=== PATIENT | female | born 1950 | race Caucasian/White ===

== ENCOUNTER → 2016-06-19 | Outpatient (CLI) | payer MEDICARE, OTHER ==
[2016-06-19 11:14] LABS: ALT 23 U/L (9-52); AST 23 U/L (14-36); Alkaline Phosphatase 95 U/L (38-126); Anion Gap 12 mmol/L; Blood Urea Nitrogen 18 mg/dL (7-17); Calcium 9.6 mg/dL (8.4-10.2); Carbon Dioxide 26 mmol/L (22-30); Chloride 104 mmol/L (98-107); Cholesterol 142 mg/dL (<200); Glucose 134 mg/dL (74-99); HDL Cholesterol 52 mg/dL (40-60); Non-African American GFR(MDRD) >60 (>60 ml/min/1.73 sqM); Potassium 4.8 mmol/L (3.5-5.1); Sodium 142 mmol/L (137-145); Total Bilirubin 1.1 mg/dL (0.2-1.3); Total Protein 7.3 g/dL (6.3-8.2); Triglycerides 174 mg/dL (<150)
== END ==
LOC: LABWHC1 08:54
PROVIDERS: ATTEND Internal Medicine Endocrinology, Diabetes & Metabolism
DX: E11.65 Type 2 diabetes mellitus with hyperglycemia (principal)
CPT/HCPCS: 36415; 80053; 80061; 82043; 84443

== ENCOUNTER → 2016-07-02 | Outpatient (CLI) | payer MEDICARE, OTHER ==
--- NOTE | 2016-07-02 09:31 | MR ---
MRI of the brain with and without contrast HISTORY: Memory loss. TECHNIQUE: T1-weighted sagittal, T2, FLAIR, and diffusion axial, postcontrast T1 axial and coronal vi ews of the brain are submitted. CONTRAST: 20 mL MultiHance FINDINGS: There is no evidence of acute ischemia. The ventricles, basal cisterns, and sulci overlying the co nvexities are consistent with mjkq-ns-cvtaaxoj degenerative change. There is no mass effect or enhan cing mass. Craniocervical junction maintained. Sella turcica has a normal appearance. No evidence of cerebellopo ntine angle mass. Hyperostosis frontalis interna. There are vague 5 mm enhancement in the posterior left occipital lobe likely is artifact. Vague 5 mm enhancement within the right medial temporal lobe also appears to be artifactual or vascular additional sequences. Changes of chronic sinusitis and mastoiditis noted. 5 mm nodular prominence involving the posterior c ommunicating artery and the right. WHITE MATTER: Approximately 5 focal areas of abnormal signal scattered throughout the white matter bilaterally whic h are nonspecific. IMPRESSION: 1. No acute intracranial process. Mild to moderate degenerative change and minimal nonspecific white matter findings most typical remote microvascular ischemia. 2. There is a 5 mm area of nodular enhancement in the region of the right posterior communicating art nga. Tiny aneurysm not excluded consider follow-up MRA [place].
== END | disposition home or self-care (01) ==
LOC: RADMRIMAIN 08:38
PROVIDERS: ATTEND Psychiatry & Neurology Neurology
DX: R90.82 White matter disease, unspecified (principal)
CPT/HCPCS: 70553; A9577

== ENCOUNTER → 2016-09-06 | Outpatient (CLI) | payer MEDICARE, OTHER ==
--- NOTE | 2016-09-06 12:38 | MR ---
EXAMINATION TYPE: MR angio head wo con DATE OF EXAM: 09/06/2016 COMPARISON: MRI 07/02/2016 HISTORY: aneurysm, dizziness TECHNIQUE: Utilizing 3-D etfl-vl-oqncbn intracranial MRA of the [place] was performed. FINDINGS: The vertebrobasilar and carotid systems are patent. There is a 5 mm area of nodular enhancement at t he origin of the right posterior communicating artery compatible with a small aneurysm IMPRESSION: 1. 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 Also suggestion of po ssible fenestration..
== END | disposition home or self-care (01) ==
LOC: RADMRIMAIN 11:39
PROVIDERS: ATTEND Neurological Surgery
DX: I67.1 Cerebral aneurysm, nonruptured (principal)
CPT/HCPCS: 70544

== ENCOUNTER → 2017-04-28 | Outpatient (CLI) | payer MEDICARE, OTHER ==
--- NOTE | 2017-04-28 18:48 | CONS ---
CONSULTATION REASON FOR CONSULTATION: Sleep apnea. CHIEF COMPLAINT: "I don't sleep well. Restless at night. I wake up frequently and have to go to the recliner to get better sleep." This is a very pleasant 66-year-old female patient, morbidly obese, who is coming in due to concerns about obstructive sleep apnea. The patient had complicated multiple abdominal surgeries, and during her last abdominal surgery the patient had impending respiratory failure where she had she had to be placed on BiPAP. During the same hospitalization, the patient was told that she has obstructive sleep apnea, and I think features of obstructive sleep apnea were noted by the medical staff at the time of surgery. She was asked to be further investigated. For that reason, the patient was referred to me. In summary, the patient had a complicated bowel obstruction, for which she underwent surgery and subsequently she had an abdominal wound infection and abdominal wall hernia. Since then she has had multiple abdominal surgeries, at least 3, the last one being done at [facility]. Ultimately the abdominal wound was closed and she does not have any open wounds for now. She is morbidly obese and she carries a BMI of 47.3. She was having difficulties with her breathing postoperatively which probably was a combination of factors related to her obesity and probably some postoperative pulmonary complications occurred at the time of surgery. Sleep apnea was also considered to be a factor. Clinically the patient has loud snoring. She stops breathing, as confirmed by a family member, and she has excessive fatigue and sleepiness. She has been uncomfortable in bed and she tries to get up to sleep in a recliner. She is waking up tired and fatigued during the day. She is having increased fogginess and cloudiness with her thinking and memory and concentration, per family members. She is averaging around 5 to 6 hours of sleep. She turns on the TV in her bedroom. She tries to sleep on her side. Her current [place] Score is 10. Her weight is up at 280 pounds. No sleep paralysis. No hallucinations. No cataplexy. Occasional nightmares. PAST MEDICAL HISTORY: 1. Obesity. 2. Abdominal wall hernia requiring multiple abdominal surgeries. 3. Abdominal wound infection with MRSA. 4. Diabetes mellitus. 5. Hyperlipidemia. 6. Degenerative arthritis. 7. Previous bariatric surgery for morbid obesity. PAST SURGICAL HISTORY: 1. Lap band insertion and subsequent removal. 2. x3. 3. D and C x2. 4. Bilateral knee replacement. 5. Carpal tunnel release bilaterally. 6. Tonsillectomy. 7. Adenoidectomy. 8. Surgery for bowel obstruction and subsequent surgical repair of an abdominal wall hernia. 9. Hysterectomy. SOCIAL HISTORY: Lifetime nonsmoker. No history of alcohol. No history of IV drugs. FAMILY HISTORY: Negative for sleep apnea or any other form of sleep disorder. REVIEW OF SYSTEMS: CONSTITUTIONAL: The patient is obese. She is cooperative. She is not in acute distress at this point. She is having difficulties losing weight. HEENT: Impaired vision. Loud snoring per family. She is a nose breather. No sinus disease. No nasal congestion or postnasal drainage. No neck pain. No head trauma. PULMONARY: No cough or sputum production. She has chronic exertional dyspnea. CARDIOVASCULAR: No angina. No palpitations. GI: Negative for any nausea or vomiting. Abdominal surgery, as mentioned above. is negative for dysuria, frequency, urgency. MUSCULOSKELETAL: Degenerative arthritis with chronic knee and back pain. Skin is negative for any open wounds or ulcerations abdominal wound surgery has been all healed. NEURO: She is awake and alert, although she is having some memory and concentration problems. PSYCH: Negative for anxiety or depression at this point. PHYSICAL EXAMINATION: Her current vitals are BP of 129/68, pulse 72, respirations 18, temperature 97.6, saturation 97% on room air. Weight is 259. Height is 5 feet 2 inches. Neck size 16. [place] is 10. BMI is 47.3. GENERAL APPEARANCE: Obese, calm, comfortable, in no acute distress. Head is atraumatic, normocephalic. Pupils are equal, round, reactive to light. Crowding of posterior pharynx with Mallampati class 4. No lymphadenopathy. PULMONARY: Diminished breath sounds in lung bases bilaterally. HEART: Sounds are regular. Positive S1, S2. No S3, S4. No murmurs ABDOMEN: Scar of previous abdominal surgery over the anterior abdominal wall. No direct tenderness. No rebound tenderness or guarding. : Negative. LOWER EXTREMITIES: Trace edema. There is no cyanosis or clubbing. NEUROLOGIC: Cranial nerves are intact. The patient is moving all 4 extremities without any limitation. Psychiatrically, the patient has appropriate mood and affect. She has appropriate judgment at this point. MEDICATION LIST: 1. Metformin 500 mg p.o. b.i.d. 2. Lasix 20 mg p.o. daily. 3. Potassium 10 mg p.o. daily. 4. Atenolol 50 mg p.o. daily. 5. Enalapril 5 mg p.o. daily. 6. Zocor 20 mg p.o. daily. 7. Aspirin 81 mg p.o. daily. 8. Prozac 20 mg p.o. daily. 9. Pioglitazone 30 mg p.o. daily. 10.Glipizide 10 mg p.o. daily. 11.Iron 325 mg p.o. daily. 12.Magnesium and calcium supplements. IMPRESSION: 1. Sleep disturbance along with snoring, sleep fragmentation, frequent arousals and chronic tiredness and fatigue. Rule out underlying obstructive sleep apnea; this is very likely based on the reported history. 2. Morbid obesity. BMI of 47.3. 3. Chronic hypersomnia with an [place] score of 10. 4. Diabetes. 5. Hypertension. 6. Hyperlipidemia. 7. Abdominal wall hernia with multiple abdominal surgeries. 8. History of methicillin-resistant Staphylococcus aeruginosa wound infection. PLAN: 1. Encourage weight loss. 2. Proceed with a screening polysomnogram. 3. Treat obstructive sleep apnea if needed. 4. We will need a pulmonary evaluation and outpatient pulmonary function testing and chest x-ray will be needed, especially with her complicated postoperative course and postoperative respiratory failure. Will continue to follow. TOMY / KELECHI: [id number] /
== END | disposition home or self-care (01) ==
LOC: SLEEP 15:23
PROVIDERS: ATTEND Internal Medicine Critical Care Medicine
DX: G47.9 Sleep disorder, unspecified (principal); R06.83 Snoring; R53.83 Other fatigue; G47.8 Other sleep disorders; E66.01 Morbid (severe) obesity due to excess calories; G47.10 Hypersomnia, unspecified; E11.9 Type 2 diabetes mellitus without complications; M13.80 Other specified arthritis, unspecified site; I10 Essential (primary) hypertension; E78.5 Hyperlipidemia, unspecified; K43.9 Ventral hernia without obstruction or gangrene; Z86.14 Personal history of Methicillin resistant Staphylococcus aureus infection; Z98.890 Other specified postprocedural states; Z79.84 Long term (current) use of oral hypoglycemic drugs; Z68.42 Body mass index [BMI] 45.0-49.9, adult; Z79.899 Other long term (current) drug therapy; Z79.82 Long term (current) use of aspirin
CPT/HCPCS: 99211

== ENCOUNTER → 2017-05-26 | Outpatient (CLI) | payer MEDICARE, OTHER ==
--- NOTE | 2017-05-26 16:11 | MR ---
EXAMINATION TYPE: MR brain wo/w con DATE OF EXAM: 05/26/2017 COMPARISON: Prior MRI July 02, 2016. Prior CT brain February 04, 2016. HISTORY: Follow up from previous MRI 07/02/2016, Gadavist 10ml TECHNIQUE: Multiplanar, multisequence images of the brain and brainstem is performed without and with IV contras t, utilizing 10 mL intravenous Gadavist . FINDINGS: Diffusion weighted images demonstrate no evidence of a recent infarct or other diffusion ab normality. There is no worrisome extra-axial fluid collection. Ventricular and sulcal size are stabl e. There are a few scattered foci of T2 hyperintensity seen throughout the white matter bilaterally. Less than 5 focal lesions are present. Hyperostosis frontalis is redemonstrated. Midline structures demonstrate normal morphology. The craniocervical junction appears within normal limits. Post contrast images demonstrate no areas of abnormal enhancement with particular attention to left occipital and right medial temporal lobes at area of concern on prior MRI. The dural venous s inuses appear patent. The visualized sinuses are clear and the globes are intact. Mild increased flui d signal right mastoid air cells is redemonstrated and likely reflects retained secretions. IMPRESSION: Stable mild diffuse cerebral atrophy and chronic small vessel ischemic change. No suspici ous enhancement on current study. Areas of concern likely artifactual based on unremarkable follow-up .
== END | disposition home or self-care (01) ==
LOC: RADMRIMAIN 14:49
PROVIDERS: ATTEND Psychiatry & Neurology Neurology
DX: I67.82 Cerebral ischemia (principal); G31.9 Degenerative disease of nervous system, unspecified
CPT/HCPCS: 70553; A9581

== ENCOUNTER → 2017-05-27 | Outpatient (CLI) | payer MEDICARE, OTHER ==
[2017-05-27 09:55] LABS: Anisocytosis Slight; HCT 32.4 % (34.0-46.0); HGB 9.6 gm/dL (11.4-16.0); Hypochromasia Moderate; MCH 23.5 pg (25.0-35.0); MCHC 29.8 g/dL (31.0-37.0); Mean Platelet Volume 7.1; Microcytosis Slight; Platelet Count 282 k/uL (150-450); RDW 16.8 % (11.5-15.5); WBC 7.8 k/uL (3.8-10.6)
[2017-05-27 11:09] LABS: Calcium 9.6 mg/dL (8.4-10.2); Potassium 4.2 mmol/L (3.5-5.1); Total Bilirubin 0.9 mg/dL (0.2-1.3); Total Protein 7.4 g/dL (6.3-8.2)
[2017-05-27 19:49] LABS: Hemoglobin A1C 5.1 % (4.0-6.0)
== END | disposition home or self-care (01) ==
LOC: LABWHC1 08:29
PROVIDERS: ATTEND Internal Medicine Endocrinology, Diabetes & Metabolism
DX: E11.65 Type 2 diabetes mellitus with hyperglycemia (principal)
CPT/HCPCS: 36415; 80053; 80061; 82043; 82570; 83036; 85027

== ENCOUNTER → 2017-07-14 | Outpatient (CLI) | payer MEDICARE, OTHER ==
--- NOTE | 2017-07-14 14:26 | PN ---
PROGRESS NOTE A 66-year-old female patient coming in for a compliance evaluation regarding obstructive sleep apnea. The patient was found to have mild obstructive sleep apnea and an AHI of 8.7, worse during REM. AHI during REM was 23.2. Based on that, she was given a CPAP machine and currently she is on an auto CPAP with a minimum pressure of 10, a maximum pressure of 16. She is using a Branham FX nose pillow. She is looking well. She is responding to her treatment. She reports marked improvement in sleep quality in general while being on CPAP treatment. She is waking up much more alert and refreshed during the day. On the compliance data, the patient has been using her CPAP machine more than 4 hours and / days. Average CPAP is around 6.7 hours per night and her average CPAP pressure is 11.9 with an AHI while on treatment is down to 2.9. She is quite content and happy and she denies having any complaints. Her temperatures is at 72 degrees Fahrenheit and level is at 5. She is trying to lose weight. She is morbidly obese. PERTINENT PHYSICAL FINDINGS: The BP is 113/57, pulse 72, respirations 16, weight is 245. Temperature 98.0, saturation 96% on room air. GENERAL APPEARANCE: Calm, comfortable, in no acute distress. HEENT: Head is atraumatic, normocephalic. Neck short, supple. There is crowding of posterior pharynx. There is no goiter or neck masses. LUNGS: Clear to auscultation. HEART: Sounds regular rate and rhythm. Normal S1, S2. No S3, S4. No murmurs. ABDOMEN: Soft, nontender. No organomegaly. EXTREMITIES: Trace edema. There is no cyanosis or clubbing. REVIEW OF SYSTEMS: A 12-point review of system was done. Her hypersomnia is improved, she has had multiple abdominal surgeries and she is still being followed up by Dr. Ferguson at [facility]. She has abdominal wall hernia. Otherwise, no other new complaints for now. IMPRESSION: 1. Symptomatic obstructive sleep apnea with an apnea-hypopnea index of 8.7, worse during REM. The patient is undergoing successful CPAP therapy with an APAP minimum pressure of 10, maximum pressure of 16. 2. Morbid obesity with a body mass index of 47. 3. Hypersomnia, improved, previous [place] score was 10, currently she is down to 6. 4. Abdominal wall hernia. Surgically treated. 5. Hypertension. 6. Hyperlipidemia. 7. Diabetes mellitus. PLAN: 1. Continue CPAP at same level of pressure. 2. Continue using the Branham FX nose pillows. 3. Encourage weight loss. 4. Treatment has been successful. The patient will see me back in a year's time in followup, earlier if needed. MMODL / IJN: [id number] /
== END | disposition home or self-care (01) ==
LOC: SLEEP 13:05
PROVIDERS: ATTEND Internal Medicine Critical Care Medicine
DX: G47.33 Obstructive sleep apnea (adult) (pediatric) (principal); E66.01 Morbid (severe) obesity due to excess calories; G47.10 Hypersomnia, unspecified; K43.9 Ventral hernia without obstruction or gangrene; I10 Essential (primary) hypertension; E78.5 Hyperlipidemia, unspecified; E11.9 Type 2 diabetes mellitus without complications; Z98.890 Other specified postprocedural states; Z68.42 Body mass index [BMI] 45.0-49.9, adult; Z99.89 Dependence on other enabling machines and devices

== ENCOUNTER → 2017-12-15 | Outpatient (CLI) | payer MEDICARE, OTHER ==
--- NOTE | 2017-12-15 14:51 | BD ---
EXAMINATION TYPE: Axial Bone Density DATE OF EXAM: 12/15/2017 COMPARISON: NONE CLINICAL HISTORY: 67 YR OLD FEMALE....ICD-10 CODE: Z13.820 SCREENING Height: 62 Weight: 252 FRAX RISK QUESTIONS: NOTHING TO NOTE HERE RISK FACTORS HISTORY OF: Diet low in dairy products/other sources of calcium: NO Postmenopausal woman: 47 YRS OLD TOTAL HYST. MEDICATIONS: Additional Medications: BP MEDS, ORAL DIABETIC MEDS, STATINS FOR CHOLESTEROL, VIT D AND CALCIUM Additional History: IRREG. HEART BEAT, DIABETIC, BILAT TKR's EXAM MEASUREMENTS: Bone mineral densitometry was performed using the [employer] System. Bone mineral density as measured about the Lumbar spine is: ----- L1-L4(G/cm2): 1.580 T Score Values are as follows: ----- L1: 5.5 ----- L2: 3.3 ----- L3: 2.4 ----- L4: 2.4 ----- L1-L4: 3.3 Bone mineral density FIRST BONE DENSITY TEST.....BASELINE STUDY Bone mineral density about the R hip (g/cm2): 1.018 Bone mineral density about the L hip (g/cm2): 1.029 T Score values are as follows: -----R Neck: -0.2 -----L Neck: 0.0 -----R Total: 0.1 -----L Total: 0.2 Bone mineral density BASELINE STUDY FRAX%s: THERE IS A 6.1% CHANCE OF A MAJOR OSTEOPOROTIC FX AND A 0.3% FOR A HIP FX.....PROBABILITY OF FX IN 10 YRS TIME IMPRESSION: Normal (Values between +1 and -1 indicate normal bone mass). Consider repeating this study in 5 year s or sooner if there is some new clinical indication. NOTE: T-SCORE=SD OF THE YOUNG ADULT MEAN.
--- NOTE | 2017-12-17 10:22 | MM ---
Reason for exam: screening (asymptomatic). Last mammogram was performed 2 years and 10 months ago. History: Patient is postmenopausal. Benign excisional biopsy of the left breast, 2002. Physical Findings: A clinical breast exam by your physician is recommended on an annual basis and results should be correlated with mammographic findings. MG 3D Screening Mammo W/Cad Bilateral CC and MLO view(s) were taken. Prior study comparison: February 14, 2015, mammogram, performed at [facility]. February 07, 2014, mammogram, performed at [facility]. There are scattered fibroglandular densities. Stable tiny oil cyst calcifications. No significant changes when compared with prior studies. ASSESSMENT: Negative, BI-RAD 1 RECOMMENDATION: Routine screening mammogram of both breasts in 1 year.
== END | disposition home or self-care (01) ==
LOC: RADBDWWP 13:40
PROVIDERS: ATTEND Family Medicine
DX: Z12.31 Encounter for screening mammogram for malignant neoplasm of breast (principal); Z13.820 Encounter for screening for osteoporosis
CPT/HCPCS: 77063; 77067; 77080

== ENCOUNTER → 2018-01-06 | Outpatient (CLI) | payer MEDICARE, OTHER ==
--- NOTE | 2018-01-06 14:06 | CT ---
EXAMINATION TYPE: CT abdomen pelvis w con DATE OF EXAM: 01/06/2018 COMPARISON: None HISTORY: 67-year-old female with abdominal wall mass. Lump near hernia repair. TECHNIQUE: Contiguous axial scanning of the abdomen and pelvis following administration of 80 ml Isov ue 300 IV contrast. Delayed images through the kidneys and coronal/sagittal reconstructions performe d. CT DLP: 1753 mGycm Automated exposure control for dose reduction was used. FINDINGS: Heart is upper limits of normal in size without pericardial effusion. Aortic valvular calcifications are present. Strandy atelectasis in the lower lungs. No pleural effusion. Postsurgical changes at the GE junction. No focal liver lesion or biliary ductal dilatation. Portal venous system is patent. Gallbladder, adrenal glands, left kidney, spleen, and pancreas appear within normal limits. The right kidney is malrotated with atrophic upper pole and multiple calcifications measuring up to 1 cm within this atrophic portion of the kidney. No dilated small bowel, free fluid, or free air. Oral contrast has reached the rectum. No significant stool burden. No pericolonic inflammatory change . A few prominent lymph nodes along the right common iliac chain measure up to 1 cm. Likely reactive/po st inflammatory. Otherwise, no mesenteric or retroperitoneal lymphadenopathy. Bladder partially distended. Uterus surgically absent. Pelvic phleboliths. Both ovaries are visualize d. No abnormal fluid collection in the pelvis. Some prominent lymph nodes along the left external juliette ac chain measure up to 1.1 cm but show large fatty hilum. Likely reactive/post inflammatory. There is extensive fat stranding along the anterior abdominal wall status post hernia repair. There i s soft tissue thickening and suspected fluid collection measuring 6.9 cm wide by 4.9 cm craniocaudal by 3.1 cm AP at this location located within the subcutaneous adipose layer. Bones: DISH within the lower thoracic spine. Facet arthropathy mid to lower lumbar spine. Degenerativ e disc disease particularly at L4-L5. IMPRESSION: 1. CORRELATE TO TIME COURSE SINCE PATIENT'S SURGERY. THERE IS EXTENSIVE INFLAMMATORY CHANGE (POSTS URGICAL VERSUS CELLULITIS) VERSUS SCAR TISSUE ALONG THE ANTERIOR ABDOMINAL WALL WITHIN THE SUBCUTANEO US ADIPOSE LAYER AND SUGGESTION OF AN ASSOCIATED 6.9 CM X 3.1 CM FLUID COLLECTION THAT COULD BE A POS TOPERATIVE SEROMA. AN ABSCESS IS CONSIDERED LESS LIKELY THERE IS NO WELL-FORMED PERIPHERALLY ENHAN CING RIM. 2. MALROTATED RIGHT KIDNEY WITH ATROPHIC UPPER POLE AND NONOBSTRUCTIVE CALCULI MEASURING UP TO 1 CM.
== END | disposition home or self-care (01) ==
LOC: RADCTMAIN 11:23
PROVIDERS: ATTEND Surgery
DX: N20.0 Calculus of kidney (principal); N26.1 Atrophy of kidney (terminal)
CPT/HCPCS: 82565; 84520; 74177; 36415; Q9967

== ENCOUNTER → 2018-08-03 | Outpatient (CLI) | payer MEDICARE, OTHER ==
--- NOTE | 2018-08-03 14:55 | SFUN ---
SLEEP CENTER FOLLOW UP NOTE Ashley is a 67-year-old female patient coming in for an annual check regarding obstructive sleep apnea. The patient has mild disease with an AHI of 8.7, and the patient is currently maintained on a APAP, minimum pressure of 10, maximum pressure of 26. On today's evaluation, the patient is using the Branham FX mask and she is looking for alternatives. She is also interesting in lowering the humidity knowing that she is having excessive nasal congestion and drainage while being on the treatment. Her weight has been stable and her condition has been essentially stable without any new onset medical consult or comorbidities over the past 1 year. I checked her compliance data the patient has been averaging around more than 5 hours of CPAP use per night. Her CPAP use for more than 4 hours is 21/30. Her average pressure utilized is 13.2 cm of water with a leak factor of 28 L/minute and her AHI while on treatment is down to 2.3. As such, this is a successful treatment. In terms of her weight, the patient has gained significant amount of weight since last year. She used to weight 245 pounds and currently she is up to 274 with a BMI of 50.1. REVIEW OF SYSTEMS: A 14 -point review of system was done. Positive findings are mentioned above in history of present illness is positive for weight gain. No hypersomnia or sleepiness. She has excessive nasal congestion and drainage. No sinus infections. No hypersomnia or sleepiness during the day. No angina. No palpitations. No shortness of breath. BP is 119/59, pulse 63, respirations 16, temperature 97.2, saturation 98% on room air. BMI is 50.1, [place] score is 7, weight is 274. Height is 5, 2. GENERAL APPEARANCE: Obese, calm comfortable, head is atraumatic, normocephalic. NECK: Supple. There is no JVD. No goiter or neck masses. Mallampati class IV. LUNGS: Clear to auscultation. HEART: Sounds are regular rate and rhythm. Normal S1, S2. No S3. No murmurs. ABDOMEN: Soft, nontender. No organomegaly. EXTREMITIES: No edema. No cyanosis or clubbing. NEUROLOGIC: Alert and oriented x3. No focal neurological deficits. PSYCHIATRIC: Negative for anxiety or depression. SKIN: Negative for any wounds or ulceration. IMPRESSION: 1. Obstructive sleep apnea, apnea-hypopnea index of 8.7, worse during REM sleep. The patient is on APAP, minimum of 10, maximum pressure of 16. 2. Obesity with interval weight gain. Current body mass index is up to 50.1. 3. Abdominal wall hernia. 4. Hypersomnia, improved. 5. Hypertension. 6. Hyperlipidemia. 7. Diabetes mellitus. PLAN: 1. Continue APAP therapy the same level of pressure, treatment is successful. 2. Lower the humidity down to 2. 3. Offer the patient a small size Dream Wear under the nose mask. 4. Encourage weight loss. 5. See me back in a year's time in followup. MMODL / IJN: [id number] /
== END | disposition home or self-care (01) ==
LOC: SLEEP 13:21
PROVIDERS: ATTEND Internal Medicine Critical Care Medicine
DX: G47.33 Obstructive sleep apnea (adult) (pediatric) (principal); E66.9 Obesity, unspecified; K43.9 Ventral hernia without obstruction or gangrene; I10 Essential (primary) hypertension; E78.5 Hyperlipidemia, unspecified; E11.9 Type 2 diabetes mellitus without complications; Z99.89 Dependence on other enabling machines and devices; Z68.43 Body mass index [BMI] 50.0-59.9, adult

== ENCOUNTER → 2019-06-10 | Outpatient (CLI) | payer MEDICARE, OTHER ==
--- NOTE | 2019-06-10 12:04 | US ---
EXAMINATION TYPE: US carotid duplex BILAT DATE OF EXAM: 06/10/2019 COMPARISON: NONE CLINICAL HISTORY: I63.9 Cerebral infarction, unspecified. Cerebral infarction. EXAM MEASUREMENTS: RIGHT: Peak Systolic Velocity (PSV) cm/sec ----- Right CCA: 67.7 ----- Right ICA: 95.3 ----- Right ECA: 118.6 ICA/CCA ratio: 1.4 RIGHT: End Diastole cm/sec ----- Right CCA: 16.9 ----- Right ICA: 21.2 ----- Right ECA: 15.4 LEFT: Peak Systolic Velocity (PSV) cm/sec ----- Left CCA: 57.7 ----- Left ICA: 76.2 ----- Left ECA: 80.1 ICA/CCA ratio: 1.3 LEFT: End Diastole cm/sec ----- Left CCA: 15.3 ----- Left ICA: 18.0 ----- Left ECA: 10.1 VERTEBRALS (direction of flow): Right Vertebral: Antegrade Left Vertebral: Antegrade Rhythm: Normal IMPRESSION: Mild degree of grayscale atheromatous plaquing with no sonographically evident hemodynam ically significant stenosis within either visualized carotid arterial system. Criteria for Assigning % of Stenosis / Diameter reduction (Estimation based on the indirect measurements of the internal carotid artery velocities (ICA PSV). 1. Normal (no stenosis)=ICA PSV < 125 cm/s: ratio < 2.0: ICA EDV<40 cm/s. 2. Less than 50% stenosis=ICA PSV < 125 cm/s: ratio < 2.0: ICA EDV<40 cm/s. 3. 50 to 69% stenosis=ICA PSV of 125 to 230 cm/s: ration 2.0 ? 4.0: ICA EDV 40-100 cm/s. 4. Greater than 70% stenosis to near occlusion= ICA PSV > 230 cm/s: ratio > 4.0: ICA EDV > 100 cm/s. 5. Near occlusion= ICA PSV velocities may be low or undetectable: variable ratio and ICA EDV. 6. Total occlusion=unable to detect flow.
== END | disposition home or self-care (01) ==
LOC: RADUSWWP 11:10
PROVIDERS: ATTEND Family Medicine
DX: I67.2 Cerebral atherosclerosis (principal); I65.23 Occlusion and stenosis of bilateral carotid arteries
CPT/HCPCS: 93880

== ENCOUNTER → 2019-11-14 | Outpatient (CLI) | payer MEDICARE, OTHER ==
--- NOTE | 2019-11-14 15:10 | CT ---
EXAMINATION TYPE: CT brain wo con DATE OF EXAM: 11/14/2019 COMPARISON: 02/04/2016 INDICATION: large contusion to right side of forehead and c/o headaches following fall 1 week ago DLP: 1126.5 mGycm, Automated exposure control for dose reduction was used. CONTRAST: None CT of the brain is performed utilizing 3 mm thick sections through the posterior fossa and 3 mm thick sections through the remaining calvarium. Study is performed within 24 hours of arrival to the hosp [facility]. No abnormal hyperdensity is present to suggest an acute intracranial hemorrhage. No mass lesion is evident. No acute infarcts are evident. Some mild periventricular white matter chronic changes may be present. Ventricles and sulci are mildly prominent for the patient age. Paranasal sinuses and mastoid air cells within the [id number] are clear. There is hyperostosis frontalis internus, normal variant. There is a large superficial focal swelling over the right supraorbital region. No underlying fractur e is evident. The adjacent orbit is unremarkable. IMPRESSIONS: 1. No acute intracranial process. 2. Mild atrophy with periventricular white matter ischemic changes. 3. Right upper outer periorbital hematoma.
--- NOTE | 2019-11-14 18:01 | XR ---
EXAMINATION TYPE: XR chest 2V DATE OF EXAM: 11/14/2019 COMPARISON: 11/22/2013 HISTORY: 69-year-old female chest pain, R07.9 TECHNIQUE: PA and lateral views FINDINGS: The cardiomediastinal silhouette, aorta, and pulmonary vasculature are within normal limits. Slightly low lung volumes with crowded vascular markings and some strandy basilar atelectasis. No consolidati on or pleural effusion. IMPRESSION: Some hypoventilatory changes. No acute cardiopulmonary process.
== END | disposition home or self-care (01) ==
LOC: RADCTMAIN 14:37
PROVIDERS: ATTEND Family Medicine
DX: R90.82 White matter disease, unspecified (principal); G31.1 Senile degeneration of brain, not elsewhere classified; I67.82 Cerebral ischemia; H05.231 Hemorrhage of right orbit; R07.9 Chest pain, unspecified
CPT/HCPCS: 70450; 71046

== ENCOUNTER → 2020-04-17 | Outpatient (CLI) | payer MEDICARE, OTHER ==
--- NOTE | 2020-04-17 15:05 | PN ---
PROGRESS NOTE Ashley Adan who is [facility] sleep apnea. Note that the patient had mild disease with an AHI of 8.7 and she was utilizing an APAP at a minimum pressure of 10, maximum pressure of 16 cm of water utilizing a DreamWear under the nose mask. She was doing well and she was quite compliant however her compliancy gradually went down over the years. For instance, over the past 1 year, she has utilized her machine 64 out of 365 days and she has achieved more than 4 hours 51 out 365 days. She has been averaging around 6.6 hours per night whenever she has the machine on. Average pressure is at 12.7. Leak is 37 L/minute and AHI is down to 2.9 on those days when she uses the machine. The reason for her poor compliancy has been ongoing dementia. We have noted that over the past 1 year, the patient was diagnosed having Alzheimer's dementia and her cognitive functions and memory is progressively getting worse. For instance, on today's evaluation, she did not know the year, she did not know the city that she is living. She was able to state that she was in [place]. She is quite forgetful and she is also forgetting to put her CPAP machine on overnight. Currently she is living with her daughter who seems to be the main caregiver. She does not drive. She has lost weight and she is currently down to 240 pounds. No other issues for now. I reviewed her medications. The patient was started on Namenda 10 mg p.o. daily. She has paroxysmal atrial fibrillation on a combination of atenolol 25 mg p.o. daily and Xarelto 20 mg p.o. daily. She is also on enalapril for blood pressure control. Her blood sugar control is through metformin 500 mg p.o. twice a day in addition to glipizide. Her [place] score today is at 10. Rest of the vitals are all stable. REVIEW OF SYSTEMS: Most important update on her review of system is the worsening in the cognitive function in this patient including memory, intellect, and overall functionality has been progressively getting worse and the patient does not seem to be able to live independently. This has affected her sleep compliancy. No palpitation. No angina. No stroke. PHYSICAL EXAMINATION: VITAL SIGNS: BP is 112/66, pulse 64, respirations 16, temperature 97.9, saturation 97% on room air. Height is 5 feet 2 inches, weight is 240, BMI 43.6. [place] score is at 10. GENERAL APPEARANCE: Calm, comfortable. HEAD: Atraumatic, normocephalic. NECK: Supple. There is no JVD. There is no goiter or neck masses. LUNGS: Clear to auscultation. HEART: Heart sounds are regular rate and rhythm. Normal S1, S2. No S3, S4. No murmurs. ABDOMEN: Soft, nontender. No organomegaly. EXTREMITIES: No edema. No cyanosis or clubbing. NEUROLOGICALLY: Impaired memory, poor cognition, poor ability to calculate. Oriented to self, not to place, not to time. IMPRESSION: 1. Obstructive sleep apnea AHI of 8.7, worse during REM. There has been obvious drop in the compliancy based on her underlying worsening dementia. 2. Alzheimer's dementia with impairment of cognitive function and memory. 3. Obesity with interval weight loss. Current body mass index is down to 43 and the patient is weighing 240 pounds. 4. A double hernia. 5. Hypertension. 6. Hyperlipidemia. 7. Diabetes mellitus. PLAN: Will ask the family to help us with putting the machine on the patient. I think the major issue with the compliancy is her inability to put on the mask as the patient has obvious memory problems and cognitive impairment. The daughter is going to handle that. I switched the patient to a Smart start mode which will allow the machine to run immediately once she wears the CPAP unit. She was able to put the DreamWear mask alone by herself without any assistance. I lowered the pressure to utilize an APAP pressure at a minimum of 6 and maximum of 16. EPR is at 3. Humidity level is at 3. Temperature of the tubing is at 70 degrees Fahrenheit. See me back in a year's time in followup. Refills were ordered through [facility]. MMODL / IJN: [id number] /
== END | disposition home or self-care (01) ==
LOC: SLEEP 13:59
PROVIDERS: ATTEND Internal Medicine Critical Care Medicine
DX: G47.33 Obstructive sleep apnea (adult) (pediatric) (principal); G30.9 Alzheimer's disease, unspecified; F02.80 Dementia in other diseases classified elsewhere, unspecified severity, without behavioral disturbance, psychotic disturbance, mood disturbance, and anxiety; K40.20 Bilateral inguinal hernia, without obstruction or gangrene, not specified as recurrent; I10 Essential (primary) hypertension; E78.5 Hyperlipidemia, unspecified; E11.9 Type 2 diabetes mellitus without complications; Z99.89 Dependence on other enabling machines and devices

== ENCOUNTER → 2021-03-09 | Outpatient (CLI) | payer MEDICARE, OTHER ==
--- NOTE | 2021-03-09 09:17 | MR ---
EXAMINATION TYPE: MR brain without contrast. DATE OF EXAM: 03/09/2021 COMPARISON: 05/26/2017 HISTORY: Dementia, Increased memory loss x 6 months, CVA TECHNIQUE: Multiplanar, multisequence images of the brain and brainstem is performed without contrast. FINDINGS: On the T1-weighted sagittal images, the midline structures including the craniovertebral junction rel ationships are normal. The ventricles, basal cisterns and sulci over the convexities are moderately enlarged consistent with moderate atrophy. There is no mass effect or shift of the midline structures. Based on diffusion-weighted imaging, there is no acute ischemic event. The posterior fossa is grossly normal. The intraorbital contents appear normal and symmetric. IMPRESSION: 1. Moderate atrophy. 2. No acute ischemic event. 3. No mass effect or shift of midline structures
== END | disposition home or self-care (01) ==
LOC: RADMRIMAIN 08:21
PROVIDERS: ATTEND Family Medicine
DX: G31.9 Degenerative disease of nervous system, unspecified (principal)
CPT/HCPCS: 70553; A9585

== ENCOUNTER → 2021-04-30 | Outpatient (CLI) | payer MEDICARE, OTHER ==
--- NOTE | 2021-04-30 15:48 | PN ---
PROGR[facility] NOTE [facility] PROGRESS NOTE: This is a 70-year-old female patient with advanced dementia with ongoing worsening cognitive functions. The patient is coming in for an annual check regarding obstructive sleep apnea. The patient has been treated with CPAP therapy regarding mild KAREL. She remains on an APAP mode at a pressure minimum of 6 and a maximum of 16. She has also a DreamWear [id number] nasal mask. Her compliance has been adequate over the past 30 days. She has utilized her machine and the patient has achieved more than 4 hours approximately 55% of the time. During that time, the patient had a leak of 23 L/minute and her AHI is down to 10.2. She has been averaging around 6.3 hours of CPAP use per night. As such, despite her advanced dementia, she has been able to continue her CPAP therapy. Her daughter, who is currently the main caregiver, makes sure she puts the machine on and turns it off in the morning. Note that she was taking Adderall for daytime stimulation. This caused a lot of side effects and caused some degree of insomnia, and this was discontinued. The patient was started on guanfacine ER 2 mg in the morning, which has less of a side effect profile, and the patient seems to be well stimulated with that. She is very forgetful. She has issues with functionality and she is unable to take care of herself at this point in time. She remains on a combination of Aricept and Namenda. She is also on her routine medications, which remain unchanged since her last evaluation. Outpatient medication includes: 1. Metformin 500 mg p.o. b.i.d. 2. Zocor mg p.o. daily. 3. Xanax 0.5 mg on a p.r.n. basis. 4. 20 mg p.o. daily. 5. Potassium chloride 10 mEq daily. 6. Namenda 10 mg p.o. daily. 7. Celexa 20 mg p.o. daily. 8. Lasix 40 mg p.o. daily. 9. Atenolol 25 mg b.i.d. 10.Lisinopril 10 mg p.o. daily. 11.Xarelto 20 mg p.o. daily. 12.Melatonin 10 mg each evening. 13.Guanfacine HCL ER 2 mg in the morning. REVIEW OF SYSTEMS: Impaired cognition and advanced dementia. PHYSICAL EXAMINATION: VITAL SIGNS: BP is 102/49, pulse is 50, respirations 12, temperature 96.9, saturation is 99% on room air. BMI is 45.1. [place] score is 16. Weight is 251. GENERAL APPEARANCE: Calm, comfortable. HEAD: Atraumatic, normocephalic. NECK: Supple. No JVD. No goiter or neck masses. Mallampati class IV. LUNGS: Clear to auscultation. HEART: Heart sounds are regular rate and rhythm. Normal S1, S2. No S3. No murmurs. ABDOMEN: Soft, nontender. No organomegaly. EXTREMITIES: No edema. No cyanosis or clubbing. Neurologically, impaired memory. Oriented and alert x1. She is oriented to self. Not aware of the time, year, season or month. Not aware of the location. IMPRESSION: 1. Obstructive sleep apnea; AHI of 8.7. Remains on APAP therapy, pressure minimum of 6, maximum of 15, APAP mode. 2. Alzheimer's dementia. 3. Obesity with interval 11-pound weight gain. 4. Hypertension. 5. Hyperlipidemia. 6. Diabetes mellitus. 7. History of inguinal hernia. PLAN: 1. Continue CPAP therapy at the same level of pressure. 2. Keep the patient on DreamWear nose mask. Unable to switch her to an alternative full-face mask, as the patient has extensive picking and she has caused wounds/scar over the upper nasal bridge. 3. Continue guanfacine for daytime stimulation; extended-release 2 mg p.o. daily. 4. Discontinue dextroamphetamine. 5. Rest of medications were reviewed. No other changes. Refills will be given on the supplies. 6. See me back in a year's time in followup. Prognosis is poor, especially with her underlying advanced dementia. MMODL / IJN: [id number] /
== END ==
LOC: SLEEP 14:38
PROVIDERS: ATTEND Internal Medicine Critical Care Medicine
DX: G47.33 Obstructive sleep apnea (adult) (pediatric) (principal); G30.9 Alzheimer's disease, unspecified; F02.80 Dementia in other diseases classified elsewhere, unspecified severity, without behavioral disturbance, psychotic disturbance, mood disturbance, and anxiety; E66.9 Obesity, unspecified; I10 Essential (primary) hypertension; E78.5 Hyperlipidemia, unspecified; E11.9 Type 2 diabetes mellitus without complications; Z87.738 Personal history of other specified (corrected) congenital malformations of digestive system; Z79.84 Long term (current) use of oral hypoglycemic drugs; Z99.89 Dependence on other enabling machines and devices; Z79.899 Other long term (current) drug therapy

== ENCOUNTER → 2021-05-15 | Outpatient (CLI) | payer MEDICARE, OTHER ==
--- NOTE | 2021-05-15 18:16 | XR ---
RESULT: HISTORY: R10.9 TECHNIQUE: Supine AP views of the abdomen. COMPARISON: CT 01/06/2018. FINDINGS: There is a nonobstructive bowel gas pattern. Few calcific densities in the region of the right renal shadow measuring up to 6 mm. No acute osseous abnormality. IMPRESSION: No acute process. Redemonstrated right nephrolithiasis.
== END | disposition home or self-care (01) ==
LOC: RADMRIMAIN 17:44
PROVIDERS: ATTEND Physician Assistant
DX: N20.0 Calculus of kidney (principal)
CPT/HCPCS: 74019